=== PATIENT | male | born 1950 | race Caucasian/White ===

== ENCOUNTER 2016-07-30 18:25 | Emergency (ER) | payer MEDICARE, OTHER ==
[2016-07-30] MEDS ORDERED: METHYLPRED SOD SUCC 125 MG/2 ML VIAL ONE (19:06)
[2016-07-30] MEDS ORDERED: DUONEB INH ONE (19:10)
== END 2016-07-30 20:05 | disposition home or self-care (01) ==
LOC: ER 18:25
DX: J10.1 Influenza due to other identified influenza virus with other respiratory manifestations (principal); Z79.899 Other long term (current) drug therapy; Z79.01 Long term (current) use of anticoagulants; G47.33 Obstructive sleep apnea (adult) (pediatric); I10 Essential (primary) hypertension; I48.91 Unspecified atrial fibrillation
CPT/HCPCS: 87804; 94640; 96372; 99283; J2930